=== PATIENT | male | born 2000 | race Asian ===

== ENCOUNTER 2019-09-15 21:17 | Emergency (ER) | payer BC ==
[~2019-09-15] VITALS: Ht 172.7 cm; Wt 61.4 kg
[2019-09-15 22:14] LABS: BASO % 0.1 % (0.0-2.0); EOS % 0.2 % (0-4.0); GRAN # 8.2 (1.4-6.5); GRAN % 77.6 % (42.2-75.2); HEMATOCRIT 39.6 % (36.0-47.0); HEMOGLOBIN 13.4 g/dl (12.5-16.1); LYMPH % 9.1 % (20.0-51.0); MEAN CELL VOLUME 90 fl (80.0-95.0); MEAN CORPUSCULAR HEMOGLOBIN 31 pg (26.0-32.0); MEAN CORPUSCULAR HGB CONC 34 g/dl (33.0-37.0); MEAN PLATELET VOLUME 9.9 fl (7.4-10.4); MONO # 1.3 (0.1-0.6); MONO % 12.3 % (1.7-9.3); PLATELET COUNT 131 K/mm3 (130-400); REDCELL DISTRIBUTION WIDTH-CV 12.9 % (11.5-14.5)
[2019-09-15 22:19] LABS: INR 1.2 (0.8-3.0); PROTHROMBIN TIME 14.6 SECONDS (9.7-12.8)
[2019-09-15 22:22] LABS: PARTIAL THROMBOPLASTIN TIME 33.4 SECONDS (26.0-37.0)
[2019-09-15 22:26] LABS: ALBUMIN 3.8 gm/dL (3.5-5.0); BILIRUBIN,TOTAL 0.9 mg/dL (0.0-1.0); CALCIUM 8.3 mg/dL (8.4-10.2); CREATININE, serum 0.9 (0.66-1.25); POTASSIUM 3.7 mmol/L (3.4-5.0); TOTAL PROTEIN 7.5 gm/dL (6.4-8.2)
[2019-09-15 22:35] LABS: TROPONIN-I 0.013 ng/mL (0.000-0.035)
[2019-09-15 22:42] LABS: C-REACTIVE PROTEIN 16.6 mg/dL (0.0-0.9)
[2019-09-15 23:27] VITALS: BP 101/73; PULSE 118; TEMP 98.9
[2019-09-15 23:27] LABS: ERYTHROCYTE SEDIMENTATION RATE 34 mm/hr (0-15)
== END 2019-09-15 23:33 | disposition short-term general hospital (02) ==
LOC: COL.ER 21:17
PROVIDERS: Emergency Medicine
DX: I21.09 ST elevation (STEMI) myocardial infarction involving other coronary artery of anterior wall (principal)
CPT/HCPCS: J7030

== ENCOUNTER 2021-03-03 20:16 | Emergency (ER) | payer BC ==
[~2021-03-03] VITALS: Ht 172.7 cm; Wt 63.6 kg
[2021-03-03 22:15] VITALS: BP 121/90; PULSE 91; TEMP 100.2
== END 2021-03-03 22:15 | disposition home or self-care (01) ==
LOC: COL.ER 20:16
DX: R53.81 Other malaise (principal); R50.9 Fever, unspecified; R52 Pain, unspecified

== ENCOUNTER 2021-03-22 14:07 | Emergency (ER) | payer BC ==
[~2021-03-22] VITALS: Ht 172.7 cm; Wt 63.6 kg
[2021-03-22 14:13] VITALS: BP 127/76; TEMP 97.9
[2021-03-22 14:43] LABS: STREP SCREEN NEGATIVE
[2021-03-22] MEDS ORDERED: MAGIC MOUTH PO (14:55)
[2021-03-22 15:12] VITALS: PULSE 106
== END 2021-03-22 15:12 | disposition home or self-care (01) ==
LOC: COL.ER 14:07
PROVIDERS: Nurse Practitioner
DX: J02.9 Acute pharyngitis, unspecified (principal); Z90.09 Acquired absence of other part of head and neck